=== PATIENT | male | born 2000 | race African-American/Black ===

== ENCOUNTER 2019-06-14 08:37 | Emergency (ER) | payer MEDICAID, SELFPAY ==
[2019-06-14] MEDS ORDERED: Dexamethasone 4 mg/ml Vial ONE (09:34)
[2019-06-14] MEDS ORDERED: Ketorolac Tromethamine 30 MG/ML VIAL ONE (09:34)
== END 2019-06-14 10:15 | disposition home or self-care (01) ==
LOC: ERS 08:37
DX: J36 Peritonsillar abscess (principal)
CPT/HCPCS: 96372; 99282; J1100; J1885

== ENCOUNTER 2021-12-27 21:00 | Emergency (ER) | payer BC ==
[2021-12-27] MEDS ORDERED: Lidocaine Viscous Sol 2% 15 ml UD Cup ONE (21:12)
[2021-12-27] MEDS ORDERED: Mag-Al 1200 mg/1200 mg/30 ML UDCUP ONE (21:12)
[2021-12-27] MEDS ORDERED: Ondansetron PF 4 MG/2 ML Vial ONE ×2 (21:14→22:33)
[2021-12-27 21:31] LABS: #Lymphocytes 0.9 thou/uL (1.20-3.40); #Monocytes 0.6 thou/uL (0.11-0.59); #Neutrophils 12.1 thou/uL (1.40-6.50); %Basophils 0.1 % (0.0-1.0); %Eosinophils 0.1 % (0.0-10.0); %Lymphocytes 6.9 % (21.0-51.0); %Monocytes 4.1 % (0.0-10.0); %Neutrophils 88.8 % (42.0-75.0); Hemoglobin 16.4 g/dL (14.0-18.0); Mean Corpuscular Hemoglobin 33.8 pg (27.0-31.0); Mean Corpuscular Volume 99.3 fL (78.0-98.0); Platelet Count 215 thou/uL (130-400); RBC Distribution Width 11.4 % (11.5-14.5); Red Blood Cell (RBC) Count 4.87 mill/uL (4.70-6.10); White Blood Cell (WBC) Count 13.6 thou/uL (4.8-10.8)
[2021-12-27 21:53] LABS: ALT (SGPT) 43 U/L (8-55); AST (SGOT) 34 U/L (5-34); Albumin 5.4 g/dL (3.5-5.0); Alkaline Phosphatase 74 U/L (40-110); Anion Gap 20 mmol/L (10-20); BUN (Urea Nitrogen) 15 mg/dL (8.9-20.6); Bilirubin, Total 2.1 mg/dL (0.2-1.2); Calc. Creatinine Clearance 0 mL/min (70-130); Calcium 10.8 mg/dL (7.8-10.44); Carbon Dioxide 22 mmol/L (22-29); Chloride 101 mmol/L (98-107); Globulin 4.5 g/dL (2.4-3.5); Glucose 127 mg/dL (70-105); Lipase 7 U/L (8-78); Protein, Total 9.9 g/dL (6.0-8.3); Sodium 139 mmol/L (136-145)
[2021-12-27] MEDS ORDERED: Pantoprazole 40 MG VIAL ONE (22:33)
== END 2021-12-27 22:31 | disposition home or self-care (01) ==
LOC: ERS 21:00
DX: R10.13 Epigastric pain (principal); F17.210 Nicotine dependence, cigarettes, uncomplicated
CPT/HCPCS: 80053; 83690; 85025; 96374; 96375; 96376; C9113; J2405

== ENCOUNTER 2024-08-13 20:27 | Emergency (ER) | payer BC, SELFPAY ==
[2024-08-13 20:48] LABS: #Basophils 0.04 10x3/uL (0.0-0.2); #Eosinophils Less than 0.03 10x3/uL (0.0-0.7); %Basophils 0.2 % (0.0-1.0); %Lymphocytes 2.2 % (21.0-51.0); %Monocytes 3.7 % (0.0-10.0); %Neutrophils 93.4 % (42.0-75.0); Hemoglobin 17.1 g/dL (14.0-18.0); Mean Corpuscular HGB CONC 34.9 g/dL (32.0-36.0); Mean Corpuscular Volume 91.6 fL (78.0-98.0); Mean Platelet Volume 9.2 fL (7.4-10.4); Platelet Count 248 10x3/uL (130-400); RBC Distribution Width 11.6 % (11.5-14.5); Red Blood Cell (RBC) Count 5.35 mill/uL (4.70-6.10)
[2024-08-13 21:01] LABS: Anion Gap 20 mmol/L (10-20); BUN (Urea Nitrogen) 20 mg/dL (8.9-20.6); Calc. Creatinine Clearance 0 mL/min (70-130); Calcium 10.7 mg/dL (7.8-10.44); Carbon Dioxide 18 mmol/L (22-29); Chloride 104 mmol/L (98-107); Estimated GFR 97; Glucose 136 mg/dL (70-105); Potassium 4.4 mmol/L (3.5-5.1); Sodium 138 mmol/L (136-145)
[2024-08-13] MEDS ORDERED: Ketorolac Tromethamine 30 MG (1 mL) VIAL ONE (21:13)
[2024-08-13] MEDS ORDERED: Ondansetron PF 4 MG/2 ML Vial ONE (21:14)
[2024-08-13] MEDS ORDERED: Famotidine/PF 20 mg/2ml Vial ONE (21:18)
[2024-08-13 21:27] LABS: ALT (SGPT) 29 U/L (8-55); AST (SGOT) 30 U/L (5-34); Alkaline Phosphatase 81 U/L (40-110); Bilirubin, Total 1.3 mg/dL (0.2-1.2); Lipase 7 U/L (8-78); Protein, Total 10.1 g/dL (6.0-8.3)
[2024-08-13 22:41] LABS: Bacteria/HPF None Seen HPF (None Seen); Bilirubin Negative (Negative); Blood, Urine 1+ (Negative); CAUTI Indications for Culture Pelvic or flank pain; Clarity Clear (Clear); Glucose, Urine (Dipstick) Normal (Negative); Ketone, Urine Trace mg/dL (Negative); Leukocyte Negative Leu/uL (Negative); Nitrite Negative (Negative); Protein, Urine (Dipstick) 600 mg/dL (Neg-Trace); Specific Gravity, Urine 1.041 (1.002-1.036); Squamous Epithelial None Seen HPF (0-3); Urobilinogen Normal mg/dL (Less than 2)
[2024-08-13 22:45] LABS: Urine Culture Reflex No No
== END 2024-08-13 23:51 | disposition home or self-care (01) ==
LOC: ERS 20:27
DX: R10.84 Generalized abdominal pain (principal); R11.2 Nausea with vomiting, unspecified; F17.210 Nicotine dependence, cigarettes, uncomplicated
CPT/HCPCS: 36415; 74177; 80048; 81001; 82040; 82247; 83690; 84075; 84155; 84450; 84460; 85025; 96374; 96375; J1885; J2405; J3490